=== PATIENT | female | born 1965 | race African-American/Black ===

== ENCOUNTER 2021-02-28 15:16 | Outpatient (CLI) | payer OTHER, SELFPAY ==
--- NOTE | 2021-03-01 08:12 | WPDPFTINT ---
PFT Procedure Performed PFT Procedure Performed Spirometry with Pre/Post Bronchodilator Plethysmography (Lung Vol) Diffusing Cap (DLCO) Flow Vol Loop PFT Interpretation This is a pulmonary function test with pre and post-bronchodilator spirometry, plethysmography and diffusing capacity. The test was performed and results interpreted in accordance with the 2019 and 2005 ATS/ERS Task Force guidelines respectively using the Global Lung Function Initiative-2012 reference equations. Patient demonstrated good effort and cooperation. Reproducibility criteria were met. The quality of the pre bronchodilator spirometry maneuver was Grade A and post bronchodilator spirometry maneuver was Grade A. Findings: Spirometry: The contour the inspiratory and expiratory flow tracing are normal. The pre bronchodilator FVC is 2.74 L, 89% predicted. The pre bronchodilator FEV1 is 2.29 L, 94% predicted. The FEV1: FVC ratio was 83%. The post bronchodilator FVC is 2.89 L, representing a 5% increase. The post bronchodilator FEV1 is 2.34 L, representing a 2% increase. Plethysmography: The total lung capacity is 4.72, 98% predicted. The functional residual capacity is 2.46 L, 81% predicted. The residual volume is 1.88 L, 97% predicted. Diffusing capacity: The absolute diffusion capacity is 18.5, 80% predicted. The diffusing capacity corrected for alveolar volume is 4.60, 106% predicted. Impression: The spirometry is normal without evidence of an obstructive abnormality. There is no significant improvement after inhaling a single dose of albuterol. The lung volumes are normal. The diffusing capacity is normal. There are no prior studies for comparison
== END 2021-02-28 15:17 | disposition home or self-care (01) ==
PROVIDERS: PCP Emergency Medicine; Visit Provider Internal Medicine Pulmonary Disease
DX: R06.02 Shortness of breath (principal)
CPT/HCPCS: 94060; 94726; 94729

== ENCOUNTER 2021-12-19 11:40 | Outpatient (CLI) | payer OTHER, SELFPAY ==
--- NOTE | ~2021-12-19 | MM_ITS ---
EXAMINATION: MM diagnostic sonido LT w pratik HISTORY: Asymmetry in the upper outer quadrant of the left breast on outside hospital screening mammo gram TECHNIQUE: Additional 3-D tomosynthesis images of the left breast were performed and synthetic 2-D im ages were generated. CAD analysis was submitted and interpreted. COMPARISON: No prior mammogram is currently available for comparison. BREAST PARENCHYMAL COMPOSITION: The breasts are almost entirely fatty. FINDINGS: There is no suspicious mass, calcification, or architectural distortion to suggest maligna ncy. There is unclear what mammographic finding prompted diagnostic evaluation. IMPRESSION: 1. No mammographic evidence of malignancy however, comparison with outside hospital mammograms is nec essary. BI-RADS Category 0: Incomplete: Needs comparison with prior mammograms. Reviewed, dictated and finalized at location A. IMPRESSION: 1. No mammographic evidence of malignancy however, comparison with outside hosp ital mammograms is necessary. BI-RADS Category 0: Incomplete: Needs comparison with prior mammograms.
== END 2021-12-19 11:41 | disposition home or self-care (01) ==
PROVIDERS: PCP Emergency Medicine; Visit Provider Emergency Medicine
DX: R92.8 Other abnormal and inconclusive findings on diagnostic imaging of breast (principal)
CPT/HCPCS: 77061; 77065; G0279

== ENCOUNTER 2022-10-23 11:34 | Emergency (ER) | payer OTHER, SELFPAY ==
--- NOTE | ~2022-10-23 | XR_ITS ---
EXAMINATION: XR hip LT min 2V DATE: 10/23/2022 13:45 INDICATION: Left hip pain and swelling. Fall. TECHNIQUE: 2 views of left hip were obtained. COMPARISON: None. FINDINGS: Bone alignment is normal. No fracture. There is mild left hip osteoarthritis. IMPRESSION: 1. Mild left hip osteoarthritis. Reviewed, dictated and finalized at location A.
--- NOTE | ~2022-10-23 | XR_ITS ---
EXAMINATION: XR foot LT min 3V DATE: 10/23/2022 13:44 INDICATION: Left foot pain and swelling. TECHNIQUE: 4 views of left foot were obtained. COMPARISON: None. FINDINGS: Bone alignment is normal. No fracture. There is mild osteoarthritis of first metatarsophala ngeal joint. There is an enthesophyte at plantar aspect of calcaneal tuberosity. IMPRESSION: 1. Mild osteoarthritis of first metatarsophalangeal joint. Reviewed, dictated and finalized at location A.
--- NOTE | ~2022-10-23 | XR_ITS ---
EXAMINATION: XR shoulder LT min 2V DATE: 10/23/2022 13:44 INDICATION: Left shoulder pain and swelling. Fall. TECHNIQUE: 4 views of left shoulder were obtained. COMPARISON: None. FINDINGS: Bone alignment is normal. No fracture. There is severe osteoarthritis of glenohumeral joint and acromioclavicular joint. IMPRESSION: 1. Severe polyarticular osteoarthritis. Reviewed, dictated and finalized at location A.
--- NOTE | ~2022-10-23 | CT_ITS ---
EXAMINATION: CT lumbar spine wo con DATE: 10/23/2022 13:28 INDICATION: Midline back pain. Fall. TECHNIQUE: Computed tomography (CT) of the lumbar spine was performed without intravenous contrast. A utomated exposure control and iterative reconstruction technique were employed. The dose-length produ ct was 1453.86 mGy-cm. COMPARISON: None FINDINGS: Bone alignment is normal. Vertebral body heights are normal. There is mildly decreased disc height at L3-L4. The following disc levels are specifically discussed: L1-L2: The disc does not extend beyond the endplate margin. There is mild bilateral facet joint osteo arthritis. There is no neural foraminal stenosis. There is no central canal stenosis. L2-L3: The disc is bulging. There is moderate bilateral facet joint osteoarthritis. There is mild joan ateral neural foraminal stenosis. There is mild central canal stenosis. L3-L4: The disc is bulging. There is moderate right and mild left facet joint osteoarthritis. There i s mild bilateral neural foraminal stenosis. There is mild central canal stenosis. L4-L5: The disc is bulging. There is severe bilateral facet joint osteoarthritis. There is mild bilat eral neural foraminal stenosis. There is mild central canal stenosis. L5-S1: The disc is bulging. There is severe right and moderate left facet joint osteoarthritis. There is mild bilateral neural foraminal stenosis. There is mild central canal stenosis. IMPRESSION: 1. No fracture. 2. Mild lumbar spondylosis. Reviewed, dictated and finalized at location A.
--- NOTE | ~2022-10-23 | XR_ITS ---
EXAMINATION: XR knee LT 3V DATE: 10/23/2022 13:44 INDICATION: Left knee pain and swelling. TECHNIQUE: 3 views of left knee were obtained. COMPARISON: None. FINDINGS: Bone alignment is normal. No fracture. There is a benign bone island in proximal tibia. The re is moderate osteoarthritis of patellofemoral compartment and mild osteoarthritis of medial and lat eral compartments. No knee joint effusion. IMPRESSION: 1. Moderate left knee osteoarthritis. Reviewed, dictated and finalized at location A.
--- NOTE | ~2022-10-23 | CT_ITS ---
EXAMINATION: CT cervical spine wo con DATE: 10/23/2022 13:27 INDICATION: Neck midline tenderness. Fall. TECHNIQUE: Computed tomography (CT) of the cervical spine was performed without intravenous contrast. Automated exposure control and iterative reconstruction technique were employed. The dose-length pro duct was 470.39 mGy-cm. COMPARISON: None FINDINGS: There is kyphosis of cervical spine. Vertebral body heights are normal. There is mildly dec reased disc height at C5-C6. The following disc levels are specifically discussed: C2-C3: There is mild bilateral uncovertebral joint osteoarthritis. There is mild left facet joint ost eoarthritis. There is no neural foraminal stenosis. There is no central canal stenosis. C3-C4: There is mild bilateral uncovertebral joint osteoarthritis. There is no facet joint osteoarthr itis. There is no neural foraminal stenosis. There is no central canal stenosis. C4-C5: There is no uncovertebral joint osteoarthritis. There is no facet joint osteoarthritis. There is no neural foraminal stenosis. There is no central canal stenosis. C5-C6: There is mild bilateral uncovertebral joint osteoarthritis. There is no facet joint osteoarthr itis. There is no neural foraminal stenosis. There is mild central canal stenosis. C6-C7: There is no uncovertebral joint osteoarthritis. There is no facet joint osteoarthritis. There is no neural foraminal stenosis. There is no central canal stenosis. C7-T1: There is no uncovertebral joint osteoarthritis. There is mild bilateral facet joint osteoarthr itis. There is no neural foraminal stenosis. There is no central canal stenosis. IMPRESSION: 1. No fracture. 2. Mild cervical spondylosis. Reviewed, dictated and finalized at location A.
[2022-10-23 11:38] VITALS: BP 150/100; PULSE 87; RESP 18; TEMP 36.6; O2SAT 100
--- NOTE | 2022-10-23 12:32 | ED.BACK ---
HPI - Back Pain/Injury General Chief Complaint: Back Pain/Injury Stated Complaint: generalized pain Time Seen by Provider: 10/23/22 12:14 History of Present Illness HPI Narrative: Patient is a 57-year-old female here for evaluation of numerous arthralgias after a fall 2 weeks ago. Patient states that she has had pain in her left hip, knee, foot, shoulder and low back since she fell. She has not attempted any medicine for pain. Patient expressed concern over the fact that she has had numerous episodes of urinary incontinence since the fall and has been wearing depends, which is new for her. She denies any dysuria, urgency or frequency. No incontinence or retention of stool, saddle anesthesia. Related Data Allergies Allergy/AdvReac Type Severity Reaction Status Date / Time acetaminophen [From Vicodin] Allergy Mild Unknown Verified 10/23/22 12:01 hydrocodone [From Vicodin] Allergy Mild Unknown Verified 10/23/22 12:01 ibuprofen Allergy Mild Unknown Verified 10/23/22 12:01 Review of Systems Review of Systems: Gen: Denies fevers or chills Eyes: Denies eye pain or visual change ENT: Denies congestion Respiratory: Denies shortness of breath or cough CV: Denies chest pain or palpitations GI: Denies abdominal pain nausea, emesis or diarrhea : reports urinary incontinence Musculoskeletal: Reports numerous arthralgias detailed per HPI Neuro: Denies numbness, tingling, weakness or focal weakness Skin: Denies rash Except as documented, all other systems reviewed and negative PMFSH Past Medical History Medical History Allergies Anxiety Asthma Obesity Family History Family History Daughter Asthma Depression Anxiety Sibling Asthma Ovarian cancer Diabetes mellitus Hypertension Father Hypertension Heart problem Mother Heart problem Social History Social History Smoking packs per day: 1 Smoking cigarettes per day: 20.0 Years smoked: 10 Smoking pack-years: 10.00 Smoking status: Former smoker Smoking end date: 07/14/79 Alcohol intake: current Alcohol use details: Tequila Exam Narrative: APPEARANCE: Well appearing, no pain in distress, well-nourished. Head: Normocephalic and atraumatic. EYES: PERRLA/EOMI, conjunctivae clear NOSE: No nasal drainage EARS: External ear normal in appearance THROAT: Oropharynx is clear. Mucous membranes are moist. NECK: Supple. No adenopathy, no masses. RESPIRATORY: Airway patent, respirations nonlabored. Clear to auscultation bilaterally, no rales, rhonchi, wheezing. CARDIOVASCULAR: Regular rate and rhythm without murmurs, rubs, or gallops. ABDOMINAL: Normoactive bowel sounds. Soft, nontender, nondistended. No rebound tenderness or guarding. : normal rectal tone, sensation intact around perineum MUSCULOSKELETAL: tender to palpation along midline of c6 and lower lumbar spine. tenderness to palpation along the left hip, shoulder, knee, dorsum of the left foot. She is ambulatory with a steady gait. straight leg raise negative. NEURO: Normal speech. No focal neurologic deficits. SKIN: Skin is warm and dry. No rashes. PSYCHIATRIC: Normal affect/mood. Course Vital Signs Vital signs: Vital Signs Temperature 97.8 F 10/23/22 11:38 Pulse Rate 87 10/23/22 11:38 Respiratory Rate 18 10/23/22 11:38 Blood Pressure 150/100 H 10/23/22 11:38 Pulse Oximetry 100 10/23/22 11:38 Oxygen Delivery Room Air 10/23/22 11:38 Temperature 97.8 F 10/23/22 11:38 Pulse Rate 65 10/23/22 16:20 Respiratory Rate 20 10/23/22 16:20 Blood Pressure 141/86 H 10/23/22 16:20 Pulse Oximetry 100 10/23/22 16:20 Oxygen Delivery Room Air 10/23/22 11:38 MDM - Back Pain/Injury MDM Narrative Medical decision making narrative: 57-year-old female here with numerous arthralgias aft
[2022-10-23 13:49] LABS: Appearance Urine Clear (Clear); Bilirubin Urine Negative (Negative); Blood Urine Negative (Negative); Color Urine Yellow (Yellow); Glucose Urine UA Negative (Negative); Ketones Urine Negative (Negative); Leukocyte Esterase Ur Negative LEU/UL (Negative); Nitrate Urine Negative (Negative); Protein Urine Negative (Negative); Specific Grav Ur 1.006 (1.001-1.035); Urobilinogen Urine 0.2 mg/dL (<2.0); pH Urine 5.5 (5.0-9.0)
[2022-10-23 13:51] LABS: Add Urine Microscopic? NO
[2022-10-23 16:20] VITALS: BP 141/86; PULSE 65; RESP 20; O2SAT 100
== END 2022-10-23 16:25 | disposition home or self-care (01) ==
PROVIDERS: Emergency Provider Physician Assistant; PCP Emergency Medicine
DX: S33.5XXA Sprain of ligaments of lumbar spine, initial encounter (principal); R32 Unspecified urinary incontinence; J45.909 Unspecified asthma, uncomplicated; E66.9 Obesity, unspecified; Z87.891 Personal history of nicotine dependence; M47.812 Spondylosis without myelopathy or radiculopathy, cervical region; M47.816 Spondylosis without myelopathy or radiculopathy, lumbar region; M19.072 Primary osteoarthritis, left ankle and foot; M17.12 Unilateral primary osteoarthritis, left knee; M16.12 Unilateral primary osteoarthritis, left hip; M19.012 Primary osteoarthritis, left shoulder; W19.XXXA Unspecified fall, initial encounter
CPT/HCPCS: 72125; 72131; 73030; 73502; 73562; 73630; 81003; 99284

== ENCOUNTER 2022-12-03 14:11 | Outpatient (CLI) | payer OTHER, SELFPAY ==
--- NOTE | ~2022-12-03 | MR_ITS ---
EXAMINATION: MR lumbar spine wo con DATE: 12/03/2022 15:53 INDICATION: Low back pain. TECHNIQUE: Magnetic resonance imaging (MRI) of the lumbar spine was performed without intravenous con trast. Sequences included sagittal T2-weighted FSE, sagittal T2-weighted FS FSE, sagittal T1-weighted FSE, and axial T2-weighted FSE. COMPARISON: CT 10/23/2022 FINDINGS: Bone alignment is normal. Vertebral body heights are normal. There is mildly decreased disc height at L3-L4. The distal spinal cord signal intensity is normal. The conus medullaris is at L1-L2 . The following disc levels are specifically discussed: L1-L2: The disc does not extend beyond the endplate margin. There is mild right and moderate left fac et joint osteoarthritis. There is no neural foraminal stenosis. There is no central canal stenosis. L2-L3: The disc is bulging. There is severe bilateral facet joint osteoarthritis. There is mild bilat eral neural foraminal stenosis. There is no central canal stenosis. L3-L4: The disc is bulging and has an annular fissure. There is moderate bilateral facet joint osteoa rthritis. There is mild bilateral neural foraminal stenosis. There is mild central canal stenosis. L4-L5: The disc is bulging and has an annular fissure. There is severe bilateral facet joint osteoart hritis. There is mild bilateral neural foraminal stenosis. There is mild central canal stenosis. L5-S1: The disc is mildly bulging. There is severe bilateral facet joint osteoarthritis. There is mil d bilateral neural foraminal stenosis. There is no central canal stenosis. IMPRESSION: 1. Mild lumbar spondylosis. Reviewed, dictated and finalized at location A. IMPRESSION: 1. Mild lumbar spondylosis.
== END 2022-12-03 14:12 | disposition home or self-care (01) ==
PROVIDERS: PCP Emergency Medicine; Visit Provider Neurological Surgery
DX: M47.896 Other spondylosis, lumbar region (principal)
CPT/HCPCS: 72148

== ENCOUNTER 2023-02-17 12:30 | Outpatient (RCR) | payer OTHER, SELFPAY ==
--- NOTE | 2022-11-27 14:03 | PCPTNOTE ---
Patient did not show up for scheduled evaluation this date.
--- NOTE | 2022-12-16 14:27 | PTOPEVAL1 ---
Assessment and note entered by Hortencia Hernandez, PT Evaluation Information Assessment Status Evaluation Diagnosis lumbar radiculopathy, L ankle sprain Onset November 05, 2022 Subjective Information fall in October, slipped on fish water, from bucket at [employer]; fell backwards and twisted; have L wrist sprain---in wrist immobilizer; L ankle sprain with walking boot and back pain; reports ankle is most pain, want to start treatment for L ankle; wear walking boot all the time, for the past month ; did not use cane or crutches for walking per pt-- x rays did not have any fractures; does not have an appointment to go back to dr; Reported Pain Level Pain Score Self Report L ankle Additional Pain Score Comments pain range in the past week: 4-7 /10; high pressure, problems breathing, hurts so bad makes me cry increase pain with standing, walking--10 min decrease pain with elevation and walking boot; have ankle brace; sometimes can sleep through the night and wear the brace to bed; ankle swells; cold makes it hurt more; Assessment PT Clinical Summary Patience has the diagnosis' of lumbar radiculopathy and L ankle sprain. She reports ankle is bothering her more and wants to start treatment with the ankle. Onset of ankle pain with fall in October. She is wearing a walking boot and compression small sleeve/ brace over ankle. Reports walking tolerance/standing of 10 minutes. With the evaluation, she has pain with all motions of ankle, tenderness over lateral malleoli and anterior ankle joint; slight edema with circumferential measurements R/L; decreased DF and inversion ranges; 2 minute walking test distance of 300' with reports of SOB and tired after walking; and decreased strength of ankle and toes Skilled PT services are indicated to decrease pain, increase ROM and strength of L ankle, with improved mobility and education for home exercises Plan of Care Interventions Gait Training,Hot Pack/Cold Pack,Manual Therapy, Neuro Re-education,Patient Education, Therapeutic Activities,Therapeutic Exercise, Ultras
--- NOTE | 2022-12-23 14:58 | PCPTNOTE ---
Patient did not show for 12/23/22 treatment and was called and attempted to reschedule. Unable to make it other than to her other previously scheduled visit for this week.
--- NOTE | 2023-01-06 14:10 | PTOPPROG ---
Assessment and note entered by Hortencia Hernandez, PT Evaluation Information Assessment Status Progress Diagnosis lumbar radiculopathy, L ankle sprain Onset November 05, 2022 Subjective Information Patience reports: is wearing the ankle boot all of the time--does not walk without it; ankle is a little better, but still hurts; about 10 min of standing/walking at home, then have to sit down; is doing the exercises at home; PAIN: range in the past week of 4-6/10 L ankle: lateral ankle/malleoli; no longer numb; increase pain with standing, walking decrease pain with sit/rest, elevation, ice is wearing the walking boot all of the time Assessment PT Clinical Summary Patience has received 6 PT sessions. Compared to the initial evaluation: pain rating improved from 4-7/10 to 3-6/10; continues to wear the walking boot all of the time; reports pain with all ankle motions- no motion hurts more than others; reported walking/standing tolerance is the same at 10 minutes; 2 minute walking test distance increased by 75'; with standing, is not able to bear full weight on L LE; She has been educated on HEP and to try to wean off walking boot. The goals were partially achieved. Continue PT treatment. Plan of Care Interventions Electrical Stimulation,Hot Pack/Cold Pack,Manual Therapy,Neuro Re-education,Patient Education,Therapeutic Activities,Therapeutic Exercise Other Interventions fluidotherapy, taping, IASTM PT Services Indicated Yes Treatment Frequency and 2x/wk for 3 weeks Duration These treatments will address the objective and functional deficits as defined above. The patient will be advanced safely and appropriately in order for the patient to progress towards his/her prior level of function. Additional exercises will be introduced and as well as a comprehensive home exercise program upon discharge, if needed, ?to ensure carryover of functional gains achieved in the clinic. This treatment plan has been reviewed and agreement upon by the patient.
--- NOTE | 2023-01-15 10:15 | PCPTNOTE ---
Patient called & cancelled scheduled appointment this date per patient's request.
--- NOTE | 2023-01-17 16:50 | PCPTNOTE ---
Pt. did not show for therapy this date. Called patient and patient reported that she had another appointment at the same time and it slipped her mind. Pt. was reminded of her appointment for this coming Friday the .
--- NOTE | 2023-01-27 13:42 | PTOPEVAL1 ---
Assessment and note entered by Hortencia Hernandez, PT Evaluation Information Assessment Status Evaluation Diagnosis L ankle and low back pain Onset November 05, 2022 Subjective Information Patience reports: have not used the walking boot for the past week; doing the exercises at home; ankle is not stopping her from doing anything. Reported Pain Level Pain Score Self Report Additional Pain Score Comments ANKLE: pain in the past week: 0/10 activity tolerance of 15 min with in home tasks; BACK: pain range in the past week 6-8/10; ache in both sides of low back; increase pain: sitting 1 hour, moving around decrease pain: wear camisole for tightness and pressure to back; take tylenol 3; use heat, lean back in recliner with sleeping- awaken every 2 hours, not sure why- wake up because cannot sleep; Also reports pain in both knee, has had injections before; and L shoulder pain Assessment PT Clinical Summary Patience has received 11 PT sessions for her L ankle. Discharge PT for L ankle treatment: pain now at 0 /10, active ankle ROM is WNL, strength increased and indep with HEP for ankle strengthening. Evaluation for low back pain: standing trunk flexion/ extension and rotation R/L ranges are WNL and all increase back pain; supine R and L hip flexion, IR and ER motions are WNL and all increase back pain. She has decreased strength of R and L hip and knee with poor walking pattern; self assessment with the Oswestry is 54 % limitation in activity level. Continue PT for treatment to low back: modalities to decrease pain, therapeutic exercises to increase trunk and LE strength with education for posture and HEP. Plan of Care Interventions Electrical Stimulation,Hot Pack/Cold Pack,Manual Therapy,Neuro Re-education,Patient Education,Therapeutic Activities,Therapeutic Exercise,Ultrasound Other Interventions IASTM, taping PT Services Indicated Yes Treatment Frequency and 2x/wk for 3 weeks Duration These t
--- NOTE | 2023-01-27 13:43 | OPREHPOC ---
Outpatient Therapy Plan of Care This is a Multidisciplinary Plan of Care that may contain components documented by all disciplines (PT, OT, and ST.) PT Problem 1 PT Problem #1 Knowledge Deficit PT Goal 1 Goal 1* pt indep with HEP Progress Met Comment 01-06-23 progress continue towards goal PT Goal 2 Goal 01-27-23 d/c ankle-- eval back met goals for ankle NEW GOALS for back: 1* indep with HEP 2* good body position with exercises PT Problem 2 PT Problem #2 Pain PT Goal 1 Goal 1* pain L ankle at worst rating of 4/10 2* pt report walking/standing tolerance of 20 minutes Progress Not Met Comment 01-06-23 progress continue towards goals PT Goal 2 Goal 01-27-23 d/c ankle-- eval back met goal 1; #2 improved to 15 min: for ankle NEW GOALS for back: 1* pain at worst in back 5/10 2* pt report able to sit for 1 hour without back pain increase PT Problem 3 PT Problem #3 Impaired Range of Motion PT Goal 1 Goal long sitting L ankle active ROM: 1* DF 10' 2* inversion 40' Progress Not Met Comment 01-06-23 progress continue towards goals PT Goal 2 Goal 01-27-23 d/c ankle-- eval back met goals for ankle NEW GOALS for back: pt perform hip ROM in supine, without an increase in back pain: 1* R flexion 2* R IR 3* R ER 4* L flexion
--- NOTE | 2023-01-30 16:39 | PCPTNOTE ---
Pt did not show for appt today. Therapist called to remind pt of next visit but was unable to leave a message.
--- NOTE | 2023-02-06 12:56 | PCPTNOTE ---
pt did not show for today's appt. Attempted to reach her by phone, but unable to leave her a message- her phone # not accepting messages.
--- NOTE | 2023-02-13 12:56 | PCPTNOTE ---
pt did not show for today's appt, attempted to call her--voicemail is not available on her #;
--- NOTE | 2023-02-17 13:47 | PTOPDC ---
Assessment and note entered by Hortencia Hernandez, PT Evaluation Information Assessment Status Discharge Diagnosis L ankle and low back pain Onset November 05, 2022 Subjective Information Patience reports: went to ER 8 due to upset stomach, nausea and thought she had food poisoning ; then called her later and told her she has vascular issues with her legs- that is why they hurt so much; have been in bed and not doing anything; Reported Pain Level Pain Score 8: Self Report Additional Pain Score Comments have pain flowing throughout whole body--been in bed for the past week, since went to ER 5 days ago pain staying at 8/10; do not feel good today; sitting tolerance-- has not been sitting up due to pain, lie in bed all day; Assessment PT Clinical Summary Patience has received a total of 14 PT sessions--11 for her ankle and 3 for her back. She did not show for 5 appointments and called/ canceled 2 appointments. Ankle treatment has been completed. This is a reassessment of her back---compared to the initial back evaluation: pain rating at the worst remains 8/10; strength of her legs is about the same; with supine hip motions- R all and L flexion do not increase her pain, but continues to have an increase pain with R hip IR and ER; 2 minute walking test distance is slightly less, with SOB after walking; Oswestry self assessment functional score is worse, from 54% to 72% limitation in activity level; education has been completed for HEP and body mechanics. She reports abdominal issues and went to ER last week, and has been in bed and not doing anything since then. The goals were achieved for R hip motions not increasing pain; other goals were not achieved. Discharge PT services due to only having slight improvements with her back and her multiple no- shows, per the dept policy. (Attempted to call her to notify her of discharge after her last no- show, but could not reach her or leave her a voice message.) Plan of Care PT Services Indicated No
== END 2023-02-17 15:52 | disposition home or self-care (01) ==
LOC: ANHPT 12:30
PROVIDERS: PCP Emergency Medicine; Visit Provider Neurological Surgery
DX: M54.16 Radiculopathy, lumbar region (principal)
CPT/HCPCS: 97022; 97110; 97112; 97161; 97530; 99199

== ENCOUNTER 2024-01-28 08:30 | Outpatient (CLI) | payer OTHER, SELFPAY ==
[2024-01-28 09:00] VITALS: PULSE 86; O2SAT 95
[2024-01-28 09:05] VITALS: PULSE 122; O2SAT 87
[2024-01-28 09:10] VITALS: PULSE 123; O2SAT 88
[2024-01-28 09:15] VITALS: PULSE 120; O2SAT 91
[2024-01-28 09:30] VITALS: PULSE 88; O2SAT 95
--- NOTE | 2024-01-28 09:51 | HOMEO2EVAL ---
Evaluation was performed at [facility] Home Oxygen Evaluation RC: Home Oxygen (O2) Evaluation Start: 01/28/24 09:49 Freq: Status: Active Protocol: RPE Activity Type Activity Date Activity User E-sign Co-sign Detail Recorded Client Recorded Date Recorded By Document 01/28/24 09:00 [email or web address] [email or web address] 01/28/24 09:51 DJO Document 01/28/24 09:05 [email or web address] [email or web address] 01/28/24 09:51 DJO Document 01/28/24 09:10 [email or web address] [email or web address] 01/28/24 09:51 DJO Document 01/28/24 09:15 [email or web address] [email or web address] 01/28/24 09:51 DJO Document 01/28/24 09:30 [email or web address] [email or web address] 01/28/24 09:51 DJO 01/28/24 01/28/24 01/28/24 09:00 09:05 09:10 Home O2 Evaluation [Oxygen] -Test Phase Resting Exercise Exercise -Oxygen Delivery Room Air Room Air Nasal Cannula -Oxygen Flow Rate (L/min) 1 [Pulse Oximetry] -Pulse Oximetry (90-100 %) 95 87 L 88 L [Pulse Rate] -Pulse Rate (60-100 beats/min) 86 122 H 123 H [Evaluation] -Activity Tolerance [Exercise] -Ambulation Distance (feet) -Ambulation Distance (meters) [Charges] -Evaluation Charges O2 Evaluation by Pulmonary 01/28/24 01/28/24 09:15 09:30 Home O2 Evaluation [Oxygen] -Test Phase Exercise Resting -Oxygen Delivery Nasal Cannula Room Air -Oxygen Flow Rate (L/min) 2 [Pulse Oximetry] -Pulse Oximetry (90-100 %) 91 95 [Pulse Rate] -Pulse Rate (60-100 beats/min) 120 H 88 [Evaluation] -Activity Tolerance Good [Exercise] -Ambulation Distance (feet) 500 -Ambulation Distance (meters) 152.39 [Charges] -Evaluation Charges
--- NOTE | 2024-01-29 18:15 | WPDPFTINT ---
PFT Procedure Performed PFT Procedure Performed Spirometry with Pre/Post Bronchodilator Plethysmography (Lung Vol) Diffusing Cap (DLCO) Flow Vol Loop PFT Interpretation DOS: 01/28/2024 REQUESTING: Myrtle Cleveland PA-C REASON FOR TESTING: Asthma, shortness of breath PULMONARY FUNCTION TESTS Results are reliable and reproducible. Repeatability of spirometry FEV1 maneuver pre and post bronchodilator is Grade A. Spirometry: The pre-bronchodilator FEV1 is 2.02 L, 82%. The pre-bronchodilator FVC is 2.94 L, 94%. The FEV1/FVC ratio is 69 per. After bronchodilator, the FEV1 is 2.20 L, 81%, -1%. The FVC is 2.79 L, 89%,-5% after bronchodilator. The FEV1/FVC ratio is 72%. Lung volumes: The total lung capacity is 5.62 L, 113%. The residual volume is 2.03 L, 100%. The RV/TLC is 36%. FRC is 2.52 L, 79%. Airway resistance is increased. Diffusion: DLCO is 16.1, 69%, sleep reduced. The DLCO/VA is 3.97, 93%, normal. Flow volume loop: The flow volume loop is unremarkable. IMPRESSION: This shows normal spirometry without significant response to bronchodilator, normal lung volumes, mild decrease in diffusion that normalizes with alveolar volume. Compared to a prior study on 02/28/2021, the absolute value of the FEV1 was slightly better, the FEV1 was 2.29 L, 94%, increased 2%. The FVC was slightly lower 2.74 L, 89% and 5% increase. The total lung capacity was 4.72 L, 98%, now a little higher 5.62 L and 113%, still normal. She had normal diffusion previously, DLCO 18.5/80%, normal DLCO/VA. Overall similar values. Liseth Mendez MD
== END 2024-01-28 08:31 | disposition home or self-care (01) ==
LOC: ANHPFT 08:33
PROVIDERS: PCP Emergency Medicine; Visit Provider Physician Assistant
DX: J45.909 Unspecified asthma, uncomplicated (principal); R06.09 Other forms of dyspnea
CPT/HCPCS: 94060; 94618; 94726; 94729